=== PATIENT | female | born 1950 | race Hispanic/Latino ===

== ENCOUNTER 2019-06-21 11:03 | Outpatient (CLI) | payer OTHER ==
--- NOTE | 2019-06-21 12:00 | RAD ---
XR Chest Pa Lat STANDARD HISTORY: Asthma COMPARISON: 08/05/2016 FINDINGS: The heart size is normal. The lungs are well expanded without focal areas of consolidation, pneumothorax or pleural effusions. There are degenerative changes in the spine IMPRESSION: No radiographic evidence of acute cardiopulmonary process.
== END 2019-06-21 11:04 | disposition home or self-care (01) ==
LOC: BICRAD 11:03
PROVIDERS: ATTEND Family Medicine
DX: J45.50 Severe persistent asthma, uncomplicated (principal)
CPT/HCPCS: 71046

== ENCOUNTER 2024-04-21 14:19 | Outpatient (CLI) | payer MEDICARE | END 2024-04-21 14:20 | disposition home or self-care (01) | LOC: BICULT 14:19 | PROVIDERS: ATTEND Student in an Organized Health Care Education/Training Program | DX: R22.9 Localized swelling, mass and lump, unspecified (principal) | CPT/HCPCS: 76999 ==

== ENCOUNTER 2025-07-24 14:08 | Outpatient (CLI) | payer MEDICARE | END 2025-07-24 14:09 | disposition home or self-care (01) | LOC: BICMRI 14:08 | PROVIDERS: ATTEND Family Medicine | DX: S32.019A Unspecified fracture of first lumbar vertebra, initial encounter for closed fracture (principal); Z91.81 History of falling; R60.0 Localized edema; M43.8X6 Other specified deforming dorsopathies, lumbar region; M51.369 Other intervertebral disc degeneration, lumbar region without mention of lumbar back pain or lower extremity pain; M48.061 Spinal stenosis, lumbar region without neurogenic claudication; M51.379 Other intervertebral disc degeneration, lumbosacral region without mention of lumbar back pain or lower extremity pain; M48.07 Spinal stenosis, lumbosacral region | CPT/HCPCS: 72148 ==